=== PATIENT | female | born 1980 ===

== ENCOUNTER → 2020-09-27 | Outpatient (CLI) ==
[2020-09-28 13:46] LABS: ABSOLUTE RETIC # 98 10e9/uL (24-90); RETICULOCYTE % 2.54 % (0.50-2.40)
[2020-09-28 14:04] LABS: BAND NEUTROPHILS 1 %; LYMPHOCYTES % (MANUAL) 19 %; MONOCYTES % (MANUAL) 10 %; NEUTROPHILS % (MANUAL) 63 %
[2020-09-28 14:05] LABS: ANISOCYTOSIS MODERATE; BASOPHILS % (MANUAL) 1 %; ELLIPT/OVALOCYTES SLIGHT; EOSINOPHILS % (MANUAL) 6 %; MICROCYTOSIS SLIGHT
== END ==
LOC: LABNPT 15:19
PROVIDERS: ATTEND Family Medicine
DX: Z00.00 Encounter for general adult medical examination without abnormal findings (principal)
CPT/HCPCS: 85007; 85045; 85055